=== PATIENT | male | born 1995 | race Caucasian/White ===

== ENCOUNTER 2017-06-02 14:15 | Emergency (ER) | payer BC, OTHER ==
[2017-06-02 14:29] VITALS: BP 139/87; PULSE 102; RESP 18; TEMP 98.6
--- NOTE | 2017-06-02 15:12 | ED ---
General Adult HPI - General Chief complaint: Dental/Oral Stated complaint: dental pain Time Seen by Provider: 06/02/17 15:00 Source: patient, RN notes reviewed Mode of arrival: ambulatory Limitations: no limitations - History of Present Illness Initial comments: Patient 19-year-old male who presents emergency room today with chief complaint of increased dental pain. Patient does admit to pain over tooth #15. Patient does admit that he had a filling in this area that developed several months ago. She says increased pain over the last 2 days. No drainage or discharge. No other complaints. Patient denies any recent fever, chills, shortness of breath, chest pain, back pain, abdominal pain, nausea or vomiting, numbness or tingling, headaches or visual changes, or any other complaints. - Related Data Previous Rx's Medication Instructions Recorded HYDROcodone/APAP 5-325MG [[place] 5] 1 each PO Q4HR PRN #20 tab 05/06/15 Ibuprofen [Motrin] 600 mg PO Q8HR PRN #30 tab 05/06/15 Penicillin V Potassium [Pen Vee K] 500 mg PO QID #28 tab 05/06/15 Hydrocodone/Acetaminophen [[place] 1 each PO Q6HR PRN #10 tab 06/02/17 5-325] Penicillin V Potassium [Pen Vee K] 500 mg PO QID #40 tablet 06/02/17 Allergies Allergy/AdvReac Type Severity Reaction Status Date / Time No Known Allergies Allergy Verified 06/02/17 14:29 Review of Systems ROS Statement: Those systems with pertinent positive or pertinent negative responses have been documented in the HPI. ROS Other: All systems not noted in ROS Statement are negative. Past Medical History Past Medical History: No Reported History History of Any Multi-Drug Resistant Organisms: None Reported Past Surgical History: Orthopedic Surgery Past Psychological History: No Psychological Hx Reported Smoking Status: Never smoker Past Alcohol Use History: None Reported Past Drug Use History: None Reported General Exam - General Exam Comments Initial Comments: General: The patient is awake and alert, in no distress, and does not appear acutely ill. Eye: Pupils are equal, round and reactive to light, extra-ocular movements are intact. No nystagmus. There is normal conjunctiva bilaterally. No signs of icterus. Ears, nose, mouth and throat: There are moist mucous membranes and no oral lesions. Poor dental hygiene. Patient does have a cavity to the tooth #15 and local tenderness area. No sign of abscess. Uvula midline. Patient swallows without any difficulty. Neck: The neck is supple, there is no tenderness or JVD. Cardiovascular: There is a regular rate and rhythm. No murmur, rub or gallop is appreciated. Respiratory: Lungs are clear to auscultation, respirations are non-labored, breath sounds are equal. No wheezes, stridor, rales, or rhonchi. Musculoskeletal: Normal ROM, no tenderness. Strength 5/5. Sensation intact. Pulses equal bilaterally 2+. Neurological: A&O x 3. CN II-XII intact, There are no obvious motor or sensory deficits. Coordination appears grossly intact. Speech is normal. Skin: Skin is warm and dry and no rashes or lesions are noted. Psychiatric: Cooperative, appropriate mood & affect, normal judgment. Limitations: no limitations Course Vital Signs 06/02/17 14:27 Temperature 98.6 F Pulse Rate 102 H Respiratory 18 Rate Blood Pressure 139/87 O2 Sat by Pulse 99 Oximetry Medical Decision Making - Medical Decision Making Patient be started on antibiotics penicillin. Given short prescription of pain medication. Advised to follow-up with dentist following week. Disposition Clinical Impression: Pain, dental Disposition: HOME SELF-CARE Condition: Good Instructions: Toothache (ED) Additional Instructions: Please use medication as discussed. Please follow-up with dentist in the next 2 days of symptoms have not improved. Please return to emergency room if the symptoms increase or worsen or for any other concerns. Prescriptions: Hydrocodone/Acetaminophen [[place] 5-325] 1 each PO Q6HR PRN #10 tab PRN Reason: Pain Penicillin V Potassium [Pen Vee K] 500 mg PO QID #40 tablet Referrals: None,Stated [Primary Care Provider] - 1-2 days Time of Disposition: 15:11
== END 2017-06-02 15:29 | disposition home or self-care (01) ==
LOC: EC 14:15
DX: K08.89 Other specified disorders of teeth and supporting structures (principal); K02.9 Dental caries, unspecified
CPT/HCPCS: 99282

== ENCOUNTER 2017-07-23 16:55 | Emergency (ER) | payer OTHER ==
[2017-07-23 17:07] VITALS: BP 127/65; PULSE 115; RESP 18; TEMP 98.3
[2017-07-23] MEDS ORDERED: Acetaminophen-Codeine 300-30mg TAB PO STA (17:48)
[2017-07-23] MEDS ORDERED: PENICILLIN V POTASSIUM 250 MG TAB PO STA (17:50)
--- NOTE | 2017-07-23 17:55 | ED ---
ENT HPI - General Chief complaint: Dental/Oral Stated complaint: Tooth ache Time Seen by Provider: 07/23/17 17:37 Source: patient Mode of arrival: ambulatory Limitations: no limitations - History of Present Illness Initial comments: This is a 21-year-old male who presents with a chief complaint of dental pain which began 2 days ago. The patient has been evaluated in the ED for this condition and treated in the past with Penicillin VK. After completion of treatment, the patient states the symptoms resolved. The patient states that he has not seen a dentist yet. He complains of pain localized to the left maxillary region as well as a sore throat. His symptoms have been relieved with over the counter Motrin. He denies nausea, vomiting, diarrhea, fever or difficulty breathing. - Related Data Previous Rx's Medication Instructions Recorded Acetaminophen-Codeine 300-30mg 1 tab PO Q4H PRN #20 tablet 07/23/17 [Tylenol #3] Ibuprofen [Motrin] 600 mg PO Q8HR PRN #30 tab 07/23/17 Penicillin V Potassium [Pen Vee K] 500 mg PO QID #40 tablet 07/23/17 Allergies Allergy/AdvReac Type Severity Reaction Status Date / Time No Known Allergies Allergy Verified 07/23/17 17:48 Review of Systems ROS Statement: Those systems with pertinent positive or pertinent negative responses have been documented in the HPI. ROS Other: All systems not noted in ROS Statement are negative. Past Medical History Past Medical History: No Reported History History of Any Multi-Drug Resistant Organisms: None Reported Past Surgical History: Orthopedic Surgery Past Psychological History: No Psychological Hx Reported Smoking Status: Current every day smoker Past Alcohol Use History: None Reported Past Drug Use History: None Reported General Exam Limitations: no limitations General appearance: alert, in no apparent distress Head exam: Present: atraumatic, normocephalic, normal inspection Eye exam: Present: normal appearance, PERRL, EOMI. Absent: scleral icterus, conjunctival injection, periorbital swelling ENT exam: Present: normal oropharynx, other (Tender with palpation over the left buccal cheek) Neck exam: Present: other (Tender left tonsillar lymphadenopathy ) Neurological exam: Present: alert, oriented X3, CN II-XII intact Psychiatric exam: Present: normal affect, normal mood Skin exam: Present: warm, dry, intact, normal color. Absent: rash Course Vital Signs 07/23/17 17:04 Temperature 98.3 F Pulse Rate 115 H Respiratory 18 Rate Blood Pressure 127/65 O2 Sat by Pulse 98 Oximetry Medical Decision Making - Medical Decision Making The patient presented to the ED complaining of left-sided maxillary dental pain. The patient was given Tylenol with codeine for pain. He was instructed to follow-up with a dentist and may take Tylenol with codeine or Motrin for pain. Disposition Clinical Impression: Pain, dental Disposition: HOME SELF-CARE Condition: Stable Instructions: Toothache (ED) Additional Instructions: Please return to the emergency department if experiencing new or worsening of symptoms. Prescriptions: Acetaminophen-Codeine 300-30mg [Tylenol #3] 1 tab PO Q4H PRN #20 tablet PRN Reason: pain Ibuprofen [Motrin] 600 mg PO Q8HR PRN #30 tab PRN Reason: Pain Penicillin V Potassium [Pen Vee K] 500 mg PO QID #40 tablet Referrals: None,Stated [Primary Care Provider] - 1-2 days Time of Disposition: 18:00
== END 2017-07-23 18:16 | disposition home or self-care (01) ==
LOC: EC 16:55
DX: K08.89 Other specified disorders of teeth and supporting structures (principal); R59.0 Localized enlarged lymph nodes; F17.200 Nicotine dependence, unspecified, uncomplicated
CPT/HCPCS: 99282

== ENCOUNTER 2017-11-22 22:25 | Emergency (ER) | payer OTHER ==
[2017-11-22 22:45] VITALS: PULSE 87
--- NOTE | 2017-11-22 23:05 | ED ---
General Adult HPI - General Chief complaint: Extremity Injury, Lower Stated complaint: Right Knee Injury Time Seen by Provider: 11/22/17 22:55 Source: patient, RN notes reviewed Mode of arrival: wheelchair Limitations: no limitations - History of Present Illness Initial comments: Patient is a pleasant 22-year-old male presenting to the emergency Department with complaints of right knee pain. Onset of symptoms was just prior to arrival. Patient jumped off a loft approximately 5 feet. Patient states he did not have a ladder. Patient felt a sudden pop in his right knee. Patient has had significant discomfort since that time. Symptoms are similar to previous left knee ACL and meniscus injury. Patient has limited ability to bear weight secondary to pain. Patient has noticed some swelling. No other areas of injury. No head injury or loss of consciousness. No neck or back pain. - Related Data Previous Rx's Medication Instructions Recorded Ibuprofen [Motrin] 600 mg PO Q6HR PRN #20 tab 11/22/17 Allergies Allergy/AdvReac Type Severity Reaction Status Date / Time No Known Allergies Allergy Verified 11/22/17 22:45 Review of Systems ROS Statement: Those systems with pertinent positive or pertinent negative responses have been documented in the HPI. ROS Other: All systems not noted in ROS Statement are negative. Constitutional: Denies: fever Eyes: Denies: eye pain ENT: Denies: ear pain Respiratory: Denies: cough, dyspnea Cardiovascular: Denies: chest pain Endocrine: Denies: fatigue Gastrointestinal: Denies: abdominal pain Genitourinary: Denies: dysuria Musculoskeletal: Reports: arthralgia. Denies: back pain Skin: Denies: rash Neurological: Denies: weakness Past Medical History Past Medical History: No Reported History History of Any Multi-Drug Resistant Organisms: None Reported Past Surgical History: Orthopedic Surgery Past Psychological History: No Psychological Hx Reported Smoking Status: Current every day smoker Past Alcohol Use History: None Reported Past Drug Use History: None Reported General Exam Limitations: no limitations General appearance: alert, in no apparent distress Head exam: Present: atraumatic Eye exam: Present: normal appearance Neck exam: Present: normal inspection. Absent: tenderness Respiratory exam: Present: normal lung sounds bilaterally Cardiovascular Exam: Present: regular rate, normal rhythm Expanded Peripheral pulses: 2+: Posterior Tibialis (R), Dorsalis Pedis (R) GI/Abdominal exam: Present: soft. Absent: tenderness Right Hip exam: Present: normal inspection. Absent: tenderness Upper Leg exam: Present: normal inspection. Absent: tenderness Knee exam: Present: tenderness (Limited exam secondary to discomfort), swelling (Mild), posterior draw sign (Questionable exam secondary to limited exam from patient discomfort.). Absent: pain/laxity with valgus, pain/laxity with varus Lower Leg exam: Present: normal inspection. Absent: tenderness Ankle exam: Present: normal inspection. Absent: tenderness Foot/Toe exam: Present: normal inspection. Absent: tenderness Neurovascular tendon exam: Present: no vascular compromise. Absent: pulse deficit, motor deficit, sensory deficit Neurological exam: Present: alert. Absent: motor sensory deficit Psychiatric exam: Present: normal affect, normal mood Skin exam: Present: normal color Course Vital Signs 11/22/17 22:43 Temperature 98.7 F Pulse Rate 87 Respiratory 16 Rate Blood Pressure 137/84 O2 Sat by Pulse 98 Oximetry Medical Decision Making - Medical Decision Making Patient reevaluated and updated. There is concern for possible ligamentous injury and patient is advised to follow-up with orthopedics. - Radiology Data Radiology results: image reviewed (X-ray shows small effusion. No fracture.) Disposition Clinical Impression: Right knee injury Disposition: HOME SELF-CARE Condition: Stable Instructions: Knee Sprain (ED), ACL Injury (ED), Knee Pain (ED) Additional Instructions: Please follow-up with primary care physician and orthopedics in the next couple days for recheck. Ice to affected area. Motrin as needed. Return for increased pain, swelling, redness, fever, worsening symptoms or concerns. Use crutches, prescription provided. Prescriptions: Ibuprofen [Motrin] 600 mg PO Q6HR PRN #20 tab PRN Reason: Pain Is patient prescribed a controlled substance at d/c from ED?: No Referrals: Giuseppe Aquino MD [STAFF PHYSICIAN] - 1-2 days Chintan Pelletier MD [STAFF PHYSICIAN] - 1-2 days Time of Disposition: 23:37
--- NOTE | 2017-11-22 23:30 | XR ---
EXAMINATION TYPE: XR knee complete RT DATE OF EXAM: 11/22/2017 COMPARISON: NONE HISTORY: Knee pain TECHNIQUE: 3 views FINDINGS: I see no fracture nor dislocation. There is a knee joint effusion. Joint spaces are normal. IMPRESSION: Knee joint effusion. No fracture seen.
[2017-11-22] MEDS ORDERED: KETOROLAC 60 MG/2 ML VIAL IM STA (23:34)
[2017-11-22 23:52] VITALS: BP 135/85; RESP 18; TEMP 97
== END 2017-11-22 23:56 | disposition home or self-care (01) ==
LOC: EC 22:25
DX: S89.91XA Unspecified injury of right lower leg, initial encounter (principal); M25.461 Effusion, right knee; F17.200 Nicotine dependence, unspecified, uncomplicated; W17.89XA Other fall from one level to another, initial encounter; Y93.39 Activity, other involving climbing, rappelling and jumping off
CPT/HCPCS: 73562; 99283; 96372; L1830 ×2; J1885

== ENCOUNTER 2017-12-02 19:24 | Emergency (ER) | payer OTHER ==
[2017-12-02 19:44] VITALS: BP 154/81; PULSE 105; RESP 18; TEMP 99.1
--- NOTE | 2017-12-02 20:29 | ED ---
General Adult HPI - General Chief complaint: Extremity Injury, Lower Stated complaint: Knee Pain/injury-revisit Time Seen by Provider: 12/02/17 20:07 Source: patient, RN notes reviewed Mode of arrival: ambulatory Limitations: no limitations - History of Present Illness Initial comments: 22-year-old male presents to the emergency department for a chief complaint of toothache 1 week. Patient does not currently at the dentist. Patient denies any fevers or chills at home. Patient states hot and cold makes the tooth ache worse. Patient states the tooth is fractured and has been for quite some time. Patient denies any acute trauma to the mouth. Patient also complains of right knee pain which she was seen here for one week ago. Patient does not want repeat x-rays. Patient has an appointment with orthopedics in 2 weeks. Patient denies increasing pain or any acute injury. Patient has no other complaints at this time including shortness of breath, chest pain, abdominal pain, nausea or vomiting, headache, or visual changes. - Related Data Previous Rx's Medication Instructions Recorded Ibuprofen [Motrin] 600 mg PO Q6HR PRN #20 tab 11/22/17 Penicillin V Potassium [Pen Vee K] 500 mg PO Q6H 10 Days tablet 12/02/17 Allergies Allergy/AdvReac Type Severity Reaction Status Date / Time No Known Allergies Allergy Verified 12/02/17 19:45 Review of Systems ROS Statement: Those systems with pertinent positive or pertinent negative responses have been documented in the HPI. ROS Other: All systems not noted in ROS Statement are negative. Past Medical History Past Medical History: No Reported History History of Any Multi-Drug Resistant Organisms: None Reported Past Surgical History: Orthopedic Surgery Past Psychological History: No Psychological Hx Reported Smoking Status: Current every day smoker Past Alcohol Use History: None Reported Past Drug Use History: None Reported General Exam Limitations: no limitations General appearance: alert Head exam: Present: atraumatic, normocephalic, normal inspection Eye exam: Present: normal appearance, PERRL, EOMI. Absent: scleral icterus, conjunctival injection, periorbital swelling ENT exam: Present: normal exam, mucous membranes moist, TM's normal bilaterally , normal external ear exam. Absent: normal oropharynx (Fractured tooth 1. No drainable abscesses noted. ) Neck exam: Present: normal inspection, full ROM (full ROM of the neck ), other ( No swelling or redness in the jaw or neck. ). Absent: tenderness, meningismus, lymphadenopathy Respiratory exam: Present: normal lung sounds bilaterally. Absent: respiratory distress, wheezes, rales, rhonchi, stridor Cardiovascular Exam: Present: regular rate, normal rhythm, normal heart sounds. Absent: systolic murmur, diastolic murmur, rubs, gallop, clicks Course Vital Signs 12/02/17 19:40 Temperature 99.1 F Pulse Rate 105 H Respiratory 18 Rate Blood Pressure 154/81 O2 Sat by Pulse 98 Oximetry Medical Decision Making - Medical Decision Making 22-year-old male presents to the emergency department for a chief complaint of toothache. Patient has a fractured tooth 1. No drainable abscess noted. No fevers or chills at home. No swelling in the mouth or jaw or neck. Patient does not have a dentist but will be referred to [facility]. Patient will be started on amoxicillin. Patient also complains of knee pain for which she was seen one week ago. X-ray at that time was negative. Patient ran out of his Motrin and would like a refill. Patient has an appointment with orthopedics coming up. Patient will monitor for worsening signs of infection and return if these or fever occur. He will follow up with primary care in 1-2 days. Disposition Clinical Impression: Tooth infection Disposition: HOME SELF-CARE Condition: Good Instructions: Toothache (ED) Additional Instructions: Please take antibiotic as directed. Please follow-up with [facility]. Please take Motrin and Tylenol for knee pain. Please rest ice and elevate the knee. Return to the emergency department if you have any worsening symptoms including fever or severe pain. [facility] dental clinic: [address] [place] [address]. Call [phone] for an appointment. Prescriptions: Penicillin V Potassium [Pen Vee K] 500 mg PO Q6H 10 Days tablet Is patient prescribed a controlled substance at d/c from ED?: No Referrals: Amanda Gaitan MD [Primary Care Provider] - 1-2 days Time of Disposition: 20:25
== END 2017-12-02 20:33 | disposition home or self-care (01) ==
LOC: EC 19:24
DX: K04.7 Periapical abscess without sinus (principal); S02.5XXA Fracture of tooth (traumatic), initial encounter for closed fracture; M25.561 Pain in right knee; F17.200 Nicotine dependence, unspecified, uncomplicated; X58.XXXA Exposure to other specified factors, initial encounter
CPT/HCPCS: 99283

== ENCOUNTER 2020-08-02 20:24 | Emergency (ER) | payer OTHER ==
[2020-08-02 20:28] VITALS: TEMP 98.8
[2020-08-02] MEDS ORDERED: guaiFENesin-DM 600/30MG 1 EACH TAB.ER.12H PO STA (20:43)
--- NOTE | 2020-08-02 20:46 | ED ---
General Adult HPI - General Chief complaint: ENT Stated complaint: sore throat, vomiting Time Seen by Provider: 08/02/20 20:30 Source: patient Mode of arrival: ambulatory Limitations: no limitations - History of Present Illness Initial comments: 24 year-old male patient presents to the emergency department for evaluation of foreign body sensation to the throat. States he has nasal congestion and drainage down the back of his throat she thinks is contributing. States it does not hurt. States he does have a cough with some wheezing. States he was out cold a lot today and yesterday without a face covering. Denies any fever or chills. Denies nausea or vomiting. Denies any abdominal pain, rash, or trouble eating or swallowing. He does admit to smoking cigarettes. Patient denies any recent rash, shortness of breath, chest pain, abdominal pain, diarrhea, constipation, back pain, numbness, tingling, dizziness, weakness, hematuria, dysuria, urinary urgency, urinary frequency, headache, visual changes, or any other complaints. - Related Data Home Medications Medication Instructions Recorded Confirmed No Known Home Medications 08/02/20 08/02/20 Previous Rx's Medication Instructions Recorded Albuterol Sulfate [Proair Hfa] 1 - 2 puff INHALATION Q6HR PRN #1 08/02/20 inhaler guaiFENesin-DM 600/30MG [Mucinex 2 each PO Q12HR PRN #20 tab.er.12h 08/02/20 Dm] predniSONE 50 mg PO DAILY #5 tablet 08/02/20 Allergies Allergy/AdvReac Type Severity Reaction Status Date / Time No Known Allergies Allergy Verified 08/02/20 21:49 Review of Systems ROS Statement: Those systems with pertinent positive or pertinent negative responses have been documented in the HPI. ROS Other: All systems not noted in ROS Statement are negative. Past Medical History Past Medical History: No Reported History History of Any Multi-Drug Resistant Organisms: None Reported Past Surgical History: Orthopedic Surgery Past Psychological History: No Psychological Hx Reported Smoking Status: Current every day smoker Past Alcohol Use History: None Reported Past Drug Use History: None Reported General Exam Limitations: no limitations General appearance: alert, in no apparent distress, other (This is a well developed, well nourished adult male patient in no acute distress. ) Eye exam: Present: normal appearance, PERRL, EOMI. Absent: scleral icterus, conjunctival injection, periorbital swelling ENT exam: Present: normal exam, mucous membranes moist. Absent: normal oropharynx (pharyngeal erythema. No tonsillar hypertrophy, no tonsillar exudate, uvula is midline. Tonsils are symmetric.) Neck exam: Present: full ROM. Absent: meningismus, lymphadenopathy Respiratory exam: Present: normal lung sounds bilaterally. Absent: respiratory distress, wheezes, rales, rhonchi, stridor Cardiovascular Exam: Present: regular rate, normal rhythm, normal heart sounds. Absent: systolic murmur, diastolic murmur, rubs, gallop, clicks GI/Abdominal exam: Present: soft, normal bowel sounds. Absent: distended, tenderness, guarding, rebound, rigid Neurological exam: Present: alert, oriented X3, CN II-XII intact Psychiatric exam: Present: normal affect, normal mood Skin exam: Present: warm, dry, intact, normal color. Absent: rash Course Vital Signs 08/02/20 08/02/20 08/02/20 20:26 21:42 21:54 Temperature 98.8 F Pulse Rate 110 H 72 76 Respiratory 18 Rate Blood Pressure 182/106 O2 Sat by Pulse 97 Oximetry Medical Decision Making - Medical Decision Making 24-year-old male patient presented to the emergency department today for evaluation of cough, congestion, foreign body sensation to the throat. Physical examination did reveal wheezing in the posterior lung alfred. chest x-ray and soft tissue neck x-ray were obtained and were negative. He is afebrile. Was given a breathing treatment symptoms did improve. He'll be discharged with prescription for prednisone and equal air. Also given prescription for Mucinex DM. He is instructed to follow up with his primary care physician for recheck in 1-2 days. Return parameters discussed in detail. He verbalizes understanding and agrees with this plan. My attending is Dr. Nicholson. - Lab Data Lab Results 08/02/20 Range/Units 20:58 Group A Strep Rapid Negative (Negative) - Radiology Data Radiology results: report reviewed, image reviewed Two-view x-ray of the chest is obtained. Report was reviewed in its entirety. Impression by Dr. Pedraza shows normal chest. No adverse change in Two-view x-ray of the soft tissues neck was obtained. Report was reviewed in its entirety. Impression by Dr. Pedraza shows negative cervical soft tissue exam. Disposition Clinical Impression: Viral upper respiratory infection, Foreign body sensation in throat Disposition: HOME SELF-CARE Condition: Good Instructions (If sedation given, give patient instructions): Upper Respiratory Infection (ED) Additional Instructions: Follow-up with primary care physician for recheck in 1-2 days. Return to the emergency department for any new, worsening, or concerning symptoms. Prescriptions: guaiFENesin-DM 600/30MG [Mucinex Dm] 2 each PO Q12HR PRN #20 tab.er.12h PRN Reason: Cough predniSONE 50 mg PO DAILY #5 tablet Albuterol Sulfate [Proair Hfa] 1 - 2 puff INHALATION Q6HR PRN #1 inhaler PRN Reason: Shortness Of Breath Is patient prescribed a controlled substance at d/c from ED?: No Referrals: None,Stated [Primary Care Provider] - 1-2 days Time of Disposition: 21:50
--- NOTE | 2020-08-02 21:05 | XR ---
EXAMINATION TYPE: XR chest 2V DATE OF EXAM: 08/02/2020 COMPARISON: 05/18/2001 HISTORY: Sore throat TECHNIQUE: 2 views FINDINGS: Heart and mediastinum are normal. Lungs are clear. Diaphragm is normal. Bony thorax appears normal. IMPRESSION: Normal chest. No adverse change.
--- NOTE | 2020-08-02 21:06 | XR ---
EXAMINATION TYPE: XR soft tissue neck DATE OF EXAM: 08/02/2020 COMPARISON: NONE HISTORY: Sore throat TECHNIQUE: 2 views FINDINGS: Cervical vertebra have normal alignment. Posterior elements are intact. Epiglottis is normal. Subglottic trachea appears normal. Tonsils and adenoids appear normal. Preverte bral soft tissues appear normal. IMPRESSION: Negative cervical soft tissue exam.
[2020-08-02] MEDS ORDERED: IPRATROPIUM-ALBUTEROL 3 ML NEB INHALATION STA (21:17)
[2020-08-02] MEDS ORDERED: predniSONE 50 MG TAB PO STA (21:58)
[2020-08-02 22:18] VITALS: BP 157/99; PULSE 102; RESP 20
== END 2020-08-02 22:23 | disposition home or self-care (01) ==
LOC: EC 20:24
DX: J06.9 Acute upper respiratory infection, unspecified (principal); R09.89 Other specified symptoms and signs involving the circulatory and respiratory systems; F17.200 Nicotine dependence, unspecified, uncomplicated
CPT/HCPCS: 94640; 87081; 87430; 70360; 71046; 99284; J7512